=== PATIENT | female | born 1995 | race Caucasian/White ===

== ENCOUNTER 2017-02-23 15:09 | Emergency (ER) | payer OTHER ==
[~2017-02-23] VITALS: Ht 162.6 cm; Wt 65.0 kg
[2017-02-23 15:36] VITALS: TEMP 36.8; Ht 162.6 cm; Wt 65.0 kg
[2017-02-23] MEDS ORDERED: BCPILLS PO (16:12)
--- NOTE | 2017-02-23 17:16 | DIAGNOSTIC IMAGING REPORT ---
CT SCAN OF THE BRAIN WITHOUT IV CONTRAST CLINICAL HISTORY: Trauma. COMPARISON STUDY: No priors. TECHNIQUE: Unenhanced axial CT scan of the brain is performed from the vertex to the skull base. A dose lowering technique was utilized adhering to the principles of ALARA. CT DOSE: 892.36 mGy.cm FINDINGS: Brain parenchyma: The brain parenchyma is normal in appearance. There is no hemorrhage, mass effect, or evidence of acute territorial ischemia by CT criteria. Foster-white matter is preserved. No extra-axial fluid collection is seen. Ventricles, sulci, cisterns: Normal in configuration. Intracranial vasculature: The visualized intracranial vasculature at the skull base is normal in appearance. Calvarium: There is no depressed calvarial fracture. Sinuses and mastoids: The visualized paranasal sinuses are clear. The mastoid air cells are well pneumatized. Orbits: The bony orbits are grossly intact. IMPRESSION: No acute intracranial abnormality. Electronically signed by: Phil Iniguez M.D. 02/23/2017 5:15 PM Dictated Date/Time: 02/23/2017 5:13 PM
--- NOTE | 2017-02-23 17:18 | DIAGNOSTIC IMAGING REPORT ---
CT SCAN OF THE CERVICAL SPINE CLINICAL HISTORY: Trauma. COMPARISON STUDY: No priors. TECHNIQUE: CT scan of the cervical spine is performed from the skull base to the upper thoracic spine. Images are reviewed in the axial, sagittal, and coronal planes. IV contrast was not administered for this examination. A dose lowering technique was utilized adhering to the principles of ALARA. CT DOSE: Reported separately under the concurrently performed CT scan of the brain. FINDINGS: Skeletal structures: The skeletal structures are well mineralized. There is no evidence of fracture or subluxation involving the cervical spine. Vertebral body height and alignment are maintained. There is straightening of the cervical lordosis with mild reversal centered at C4-C5. The odontoid process and lateral masses are intact. The atlantoaxial articulation is preserved. The spinous processes appear intact. Intervertebral discs: The disc spaces are well maintained. Central canal: Widely patent. Soft tissues: The prevertebral and paraspinous soft tissues are within normal limits. Calvarium: The visualized calvarium at the skull base appears intact. Brain parenchyma: Partially visualized brain parenchyma the skull base is within normal limits. Sinuses and mastoids: Minimal secretions are noted in the right sphenoid sinus. The remaining visualized paranasal sinuses are clear. The mastoid air cells are well pneumatized. Lung apices: Clear as visualized. IMPRESSION: There is no evidence of fracture or subluxation involving the cervical spine. Electronically signed by: Phil Iniguez M.D. 02/23/2017 5:17 PM Dictated Date/Time: 02/23/2017 5:15 PM
--- NOTE | 2017-02-23 17:43 | EMERGENCY ROOM VISIT NOTE ---
ED Visit Note First contact with patient: 15:45 CHIEF COMPLAINT: Head injury yesterday afternoon HISTORY OF PRESENT ILLNESS: Patient is a 21-year-old white female who presents to emergency department accompanied by roommate for evaluation of headache and neck pain after a head injury yesterday. She does admit that she is drinking alcohol that time, and yesterday afternoon around 1400, she was trying to climb up on the [place] of a large pickup truck, when she fell. She fell backwards, striking the back of her head and the top of her neck on pavement. She did not lose consciousness, she states she got up immediately. She felt the back of her head, didn't notice any bruising or swelling, but had near immediate onset of a headache. She subsequently developed some bilateral neck pain. She took ibuprofen that evening. She states that when she woke up today, she again noted headache and neck pain, felt a little bit dizzy and her stomach was upset. She took ibuprofen again. She states she was trying to study this afternoon and was having difficulty focusing. She looked at herself in the mirror and thought that her pupils were dilated. She spoke with her mom who is a nurse. She went to [facility] where she was only briefly evaluated by the clinician and sent to the emergency department for further care and evaluation. She notes a constant throbbing occipital headache that she rates an 8/10, with associated pain in the musculature of her neck that comes down into the tops of her shoulders. She denies any lightheadedness. No vomiting. No difficulty with vision. No problems with balance, speech or coordination. Her friends state that she has been acting appropriately. She denies any numbness, tingling or weakness into the upper extremities. She denies any other injuries related to the fall. No prior history of significant concussions or head injuries. REVIEW OF SYSTEMS: Review of systems as per HPI. All other systems reviewed were negative. 10 systems reviewed. PMH: Electronic medical records are reviewed and summarized as above/below. See Problem List. SOCIAL HISTORY: Patient is a college student from [place] who lives locally with roommates. Nonsmoker, socially. PHYSICAL EXAM: Vital Signs: Reviewed Nurse's notes. CONSTITUTIONAL: Patient is a pleasant, well-appearing 21-year-old white female who is awake and alert and in no acute distress. GCS: 18. HEENT: Normocephalic, atraumatic. Pupils equal, round, reactive to light and accommodation. EOMs intact without nystagmus. Sclera are anicteric. Tympanic membranes intact, with normal landmarks. External canals are clear. No hemotympanum or Early sign. Oral and nasopharynx are clear. No CSF rhinorrhea. Mucous membranes are moist. NECK: Supple, nontender, no lymphadenopathy. Full range of motion. HEART: Regular rate and rhythm, with normal S1 and S2, no murmur or gallop or rub is heard. LUNGS: Breath sounds equal and clear to auscultation without wheezes, rales, or rhonchi heard. SKIN: No lesions or rash, normal skin turgor. EXTREMITIES: No cyanosis, edema, joint tenderness or swelling. No deformity. NEUROLOGICAL: Alert and oriented x4. Cranial nerves 2 through 12, sensation and strength grossly intact. Gait is normal. Patient is able to toe, heel and tandem walk without difficulty. Negative Romberg, and pronator drift. Finger to nose, finger to finger and rapid alternating movements are intact. Immediate , recent and remote memories are intact. Concentration is normal. ED course: The patient was seen and evaluated as above. Given the mechanism of injury, and symptoms experiencing the patient, I did discuss performing head and cervical spine CTs, and she was in agreement. She declined any medication for discomfort while in the emergency department. CT scans were performed. There is no evidence for acute intracranial bleed, skull fracture or C-spine fracture, no unstable ligamentous injury. Verbal and written head injury instructions were outlined with the patient. She likely has muscular/ ligamentous neck pain due to the fall as well, and was instructed on conservative care. She declined narcotic analgesia. She was encouraged to rest , use [id number] medications for discomfort, and follow up with her primary care provider if her symptoms are not improving. She was welcome to return to the emergency department for worsening symptoms. The patient rated her discomfort a 0/10 at discharge. Differential diagnoses include concussion, skull fracture, acute intracranial bleed, C-spine injury including fracture or ligamentous injury, head contusion, among others. Medication reconciliation: I attest that I have personally reviewed the patient' s current medication list. Blood pressure screening : Patient was found to have normal blood pressure on screening and does not require follow-up. CT SCAN OF THE CERVICAL SPINE CLINICAL HISTORY: Trauma. COMPARISON STUDY: No priors. TECHNIQUE: CT scan of the cervical spine is performed from the skull base to the upper thoracic spine. Images are reviewed in the axial, sagittal, and coronal planes. IV contrast was not administered for this examination. A dose lowering technique was utilized adhering to the principles of ALARA. CT DOSE: Reported separately under the concurrently performed CT scan of the brain. FINDINGS: Skeletal structures: The skeletal structures are well mineralized. There is no evidence of fracture or subluxation involving the cervical spine. Vertebral body height and alignment are maintained. There is straightening of the cervical lordosis with mild reversal centered at C4-C5. The odontoid process and lateral masses are intact. The atlantoaxial articulation is preserved. The spinous processes appear intact. Intervertebral discs: The disc spaces are well maintained. Central canal: Widely patent. Soft tissues: The prevertebral and paraspinous soft tissues are within normal limits. Calvarium: The visualized calvarium at the skull base appears intact. Brain parenchyma: Partially visualized brain parenchyma the skull base is within normal limits. Sinuses and mastoids: Minimal secretions are noted in the right sphenoid sinus. The remaining visualized paranasal sinuses are clear. The mastoid air cells are well pneumatized. Lung apices: Clear as visualized. IMPRESSION: There is no evidence of fracture or subluxation involving the cervical spine. CT SCAN OF THE BRAIN WITHOUT IV CONTRAST CLINICAL HISTORY: Trauma. COMPARISON STUDY: No priors. TECHNIQUE: Unenhanced axial CT scan of the brain is performed from the vertex to the skull base. A dose lowering technique was utilized adhering to the principles of ALARA. CT DOSE: 892.36 mGy.cm FINDINGS: Brain parenchyma: The brain parenchyma is normal in appearance. There is no hemorrhage, mass effect, or evidence of acute territorial ischemia by CT criteria. Foster-white matter is preserved. No extra-axial fluid collection is seen. Ventricles, sulci, cisterns: Normal in configuration. Intracranial vasculature: The visualized intracranial vasculature at the skull base is normal in appearance. Calvarium: There is no depressed calvarial fracture. Sinuses and mastoids: The visualized paranasal sinuses are clear. The mastoid air cells are well pneumatized. Orbits: The bony orbits are grossly intact. IMPRESSION: No acute intracranial abnormality. Problem List Surgical Problems: (1) Hx of tonsillectomy Status: Resolved Current/Historical Medications Scheduled Control Pills ( Control Pills), 1 TAB PO DAILY Allergies Coded Allergies: No Known Allergies (Unverified , 02/23/17) Vital Signs Date Time Temp Pulse Resp B/P (MAP) Pulse Ox O2 Delivery O2 Flow Rate FiO2 02/23/17 18:01 86 16 132/77 97 02/23/17 15:36 36.8 88 16 135/89 100 Room Air Departure Information Impression Primary Impression: Concussion Additional Impression: Cervical strain Referrals No Doctor, Assigned (PCP) Patient Instructions [facility] Additional Instructions CONCUSSION DISCHARGE INSTRUCTIONS: What is a concussion? A concussion is a disturbance in the function of the brain caused by a direct or indirect force to the head. It results in a variety of symptoms like: headache, balance problems, nausea, vomiting, vision problems, hearing problems/ringing, drowsiness, irritability, and/or difficulty concentrating or remembering. A concussion may, or may not involve memory problems or loss of consciousness. Concussion instructions: Stop and stay away from ALL physical activity until you are symptom free from: Headaches Balance problems Feeling "dinged" Poor concentration Drowsy Fatigued Rest and avoid strenuous activities for the next few days. Get 8-10 hours of sleep per night. Limit activities that involve significant concentration and attention during this time to speed your recovery. This includes studying, attending school, playing video games, and heavy reading. Your brain needs to rest. Eat right and eat often. Now is the time to feed your brain. Well balanced diets that avoid high sugar foods, sodas, caffeine, etc. are better for your brain. NO ALCOHOL OR DRUGS! Avoid stimulants like caffeine, red bull, mountain dew, "energy" drinks, etc. Ibuprofen(Motrin, Advil) may be used for fever or pain. Use 600mg every six hours as needed. Take with food. Avoid using more than 2400mg in a 24 hour period. Do not use 2400mg per day for more than three consecutive days without physician direction. Prolonged inappropriate use can lead to stomach upset or ulcers. (AND/OR) Acetaminophen(Tylenol) may be used for fever or pain. Use 1000mg every six hours as needed. Avoid using more than 3000mg in a 24 hour period. Rest and avoid heavy lifting until your symptoms resolve and then gradually return to full activity. A good rule of thumb is if it hurts your neck to perform a certain activity, then it should be avoided until you are healthy again. A heating pad, warm compresses, or a hot shower may help with tight muscles and can be done several times a day as needed. Gentle stretching and range of motion exercise to help reduce stiffness and spasm. Stepwise return to sports for athletes: You may progress to the next step after 24 hours if you are symptom free. If you experience symptoms, you must return to the previous stage and try again after another 24 hours of rest and being symptom free. Best case scenario is full contact game play in 96 hours from the time of injury. Remember repeat concussions are worse than the first. Time invested in recovery will allow for better performance and less downtime in the future. If you have any questions see your hydraulic strainer operator or make an appointment to see one of the team physicians. 1) No activity, complete rest. Once all symptoms have resolved, report to the team physician or hydraulic strainer operator to be cleared to progress to step 2. 2) Start light aerobic exercise, such as walking or stationary cycling, no resistance training permitted. 3) Sport specific exercises. Add light resistance slowly. Go slow to allow your body to readapt. 4) Non-contact full speed practice. 5) Full contact practice and/or game play. FOLLOW UP INSTRUCTIONS: You should have a follow up with your family doctor or team physician in 3-5 days regarding your injury. POST CONCUSSIVE SYNDROME: Occasionally patients can experience a postconcussive syndrome which includes prolonged headaches and memory difficulties. This may occur over the next several days, weeks or rarely, even months. It is important to have a primary care physician follow-up in order to help if the situation develops. Problems could arise over the next 24 to 48 hours. You should not be left alone and MUST go to the hospital immediately if you: -Have a headache that suddenly gets worse. -Are very drowsy or cannot be woken up from sleep. -Can't recognize people or places. -Have repeated vomiting. -Behave unusually, seemed confused, or start acting irritable. -Have a seizure (arms and legs start jerking uncontrollably). -Have weak or numb arms or legs. -Are unsteady on your feet -Experience slurred speech or difficulty speaking. Problem Qualifiers
[2017-02-23 18:01] VITALS: BP 132/77; PULSE 86; O2SAT 97
== END 2017-02-23 18:02 | disposition home or self-care (01) ==
LOC: C.EDB 15:10 → C.EDD 18:02
DX: S06.0X0A Concussion without loss of consciousness, initial encounter (principal); S16.1XXA Strain of muscle, fascia and tendon at neck level, initial encounter; W17.89XA Other fall from one level to another, initial encounter; Y92.89 Other specified places as the place of occurrence of the external cause